=== PATIENT | female | born 1960 | race Hispanic/Latino ===

== ENCOUNTER 2023-03-19 15:40 | Emergency (ER) | payer OTHER ==
[~2023-03-19] VITALS: Ht 157.5 cm; Wt 113.4 kg
[2023-03-19 15:56] VITALS: BP 155/72; PULSE 85; RESP 18
[2023-03-19] MEDS ORDERED: CYCL-309 PO (16:18)
[2023-03-19] MEDS ORDERED: ACETAMINOPHEN 500 MG TABLET PO ONE (16:30)
[2023-03-19] MEDS ORDERED: CYCLOBENZAPRINE HCL 10 MG TABLET PO ONE (16:30)
== END 2023-03-19 16:40 | disposition home or self-care (01) ==
LOC: EDH 15:40
DX: S39.012A Strain of muscle, fascia and tendon of lower back, initial encounter (principal); I10 Essential (primary) hypertension; E11.9 Type 2 diabetes mellitus without complications; E78.00 Pure hypercholesterolemia, unspecified; Z88.6 Allergy status to analgesic agent; X58.XXXA Exposure to other specified factors, initial encounter; Y93.89 Activity, other specified; Y92.89 Other specified places as the place of occurrence of the external cause; Y99.8 Other external cause status

== ENCOUNTER 2023-04-24 14:27 | Emergency (ER) | payer OTHER ==
[~2023-04-24] VITALS: Ht 160 cm; Wt 108.9 kg
[~2023-04-24 14:27] MED LIST: CYCL-309 PO
[2023-04-24 14:30] VITALS: BP 160/76; PULSE 88; RESP 18
[2023-04-24] MEDS: HYDROCODONE/ACETAMINOPHEN 5/325 MG TAB PO ONE (19:21)
[2023-04-24] MEDS: DEXAMETHASONE SOD PHOSPHATE 4 MG/ML 1ML VIAL IVP ONE (19:21)
[2023-04-24] MEDS: DEXAMETHASONE SOD PHOSPHATE 4 MG/ML 1ML VIAL IM ONE (19:28)
[2023-04-24] MEDS ORDERED: MELO-106 PO (20:39)
== END 2023-04-24 20:56 | disposition home or self-care (01) ==
LOC: EDH 14:27
DX: M06.841 Other specified rheumatoid arthritis, right hand (principal); I10 Essential (primary) hypertension; E11.9 Type 2 diabetes mellitus without complications; E78.00 Pure hypercholesterolemia, unspecified; M19.90 Unspecified osteoarthritis, unspecified site; Z88.6 Allergy status to analgesic agent
CPT/HCPCS: 99283; 96372; J1100

== ENCOUNTER 2023-05-24 08:58 | Emergency (ER) | payer OTHER ==
[~2023-05-24] VITALS: Ht 152.4 cm; Wt 108.9 kg
[~2023-05-24 08:58] MED LIST changes: +MELO-106 PO
[2023-05-24] MEDS ORDERED: KETOROLAC 15MG/ML VIAL (15MG/ML) IV ONE (09:30)
[2023-05-24 09:37] LABS: BASOPHILS # (AUTO) 0.06 K/uL (0.00-0.20); BASOPHILS % (AUTO) 0.5 % (0.0-5.0); EOSINOPHILS # (AUTO) 0.71 K/uL (0.00-0.70); EOSINOPHILS % (AUTO) 6.4 % (0.0-8.0); HEMATOCRIT 38.6 % (36-48); IMMATURE GRANULOCYTE ABSOLUTE 0.05 K/uL (0-1); LYMPHOCYTES # (AUTO) 1.5 K/uL (1.0-4.8); LYMPHOCYTES % (AUTO) 13.6 % (21.0-51.0); MEAN CORPUSCULAR HEMOGLOBIN 25.8 pg (27.0-33.0); MEAN CORPUSCULAR HGB CONC 31.1 g/dL (32.0-36.0); MONOCYTES # (AUTO) 0.7 K/uL (0.1-1.0); MONOCYTES % (AUTO) 6.3 % (3.0-13.0); NEUTROPHILS % (AUTO) 72.7 % (40.0-77.0); PLATELET COUNT (AUTO) 132 K/uL (130-400); RED BLOOD CELL COUNT(AUTO) 4.65 MIL/uL (4.00-5.50)
[2023-05-24 09:47] LABS: APPEARANCE,URINE CLEAR (CLEAR); BILIRUBIN,URINE NEGATIVE (NEGATIVE); COLOR,URINE LIGHT-YELLOW (YELLOW); GLUCOSE, URINE (UA) NEGATIVE (NEGATIVE); KETONES,URINE NEGATIVE (NEGATIVE); LEUKOCYTE ESTERASE ,URINE 25 Leu/uL (NEGATIVE); NITRATE,URINE NEGATIVE (NEGATIVE); OCCULT BLOOD,URINE NEGATIVE (NEGATIVE); PROTEIN,URINE NEGATIVE (NEGATIVE); UROBILINOGEN,URINE 0.2 mg/dL (0.2-1.0)
[2023-05-24 09:51] LABS: ALBUMIN 3.3 g/dL (3.5-5.0); BILIRUBIN,TOTAL 0.5 mg/dL (0.2-1.0); CREATININE 1.2 mg/dL (0.5-1.0); POTASSIUM 4.6 mmol/L (3.5-5.1); TOTAL PROTEIN, SERUM 7.8 g/dL (6.0-8.3)
[2023-05-24 10:10] LABS: ADD UA MICROSCOPIC YES
[2023-05-24 10:17] LABS: BACTERIA,URINE RARE /HPF (None Seen); MUCUS,URINE RARE LPF (None Seen); OTHER CASTS, URINE 4 /LPF (None Seen); RBC,URINE 0-1 /HPF (0-1); SQUAMOUS EPITHELIAL CELL,UR RARE /HPF (0-2)
[2023-05-24] MEDS: MORPHINE 2 MG SYG IVP ONE (11:09)
[2023-05-24] MEDS: ONDANSETRON 4MG INJ IVP ONE (11:09)
[2023-05-24] MEDS: 0.9%NACL 1000ML 1,000 ML IV ONE (11:09)
[2023-05-24] MEDS ORDERED: DICY20TA2 PO (11:25)
[2023-05-24 12:15] VITALS: BP 130/62; PULSE 68; RESP 20; O2SAT 97
== END 2023-05-24 12:20 | disposition home or self-care (01) ==
LOC: EDH 08:58
DX: I12.9 Hypertensive chronic kidney disease with stage 1 through stage 4 chronic kidney disease, or unspecified chronic kidney disease (principal); E11.22 Type 2 diabetes mellitus with diabetic chronic kidney disease; N18.9 Chronic kidney disease, unspecified; R10.9 Unspecified abdominal pain; E87.1 Hypo-osmolality and hyponatremia; E78.00 Pure hypercholesterolemia, unspecified
CPT/HCPCS: 99285; 74176; 96374; 96361; 96375; 82150; 80053; 83690; 85025; 81001; 36415; J2270; J7030; J2405; J1885

== ENCOUNTER 2023-06-08 09:28 | Emergency (ER) | payer MEDICARE, OTHER ==
[~2023-06-08] VITALS: Ht 165.1 cm; Wt 104.3 kg
[~2023-06-08 09:28] MED LIST changes: +DICY20TA2 PO
[2023-06-08 10:01] LABS: BASOPHILS # (AUTO) 0.07 K/uL (0.00-0.20); BASOPHILS % (AUTO) 0.9 % (0.0-5.0); EOSINOPHILS # (AUTO) 0.65 K/uL (0.00-0.70); HEMATOCRIT 39.4 % (36-48); IMMATURE GRANULOCYTE ABSOLUTE 0.02 K/uL (0-1); LYMPHOCYTES # (AUTO) 1.6 K/uL (1.0-4.8); LYMPHOCYTES % (AUTO) 19.9 % (21.0-51.0); MEAN CORPUSCULAR HEMOGLOBIN 25.7 pg (27.0-33.0); MEAN CORPUSCULAR HGB CONC 31.2 g/dL (32.0-36.0); MEAN CORPUSCULAR VOLUME 82.3 fL (79-99); MONOCYTES # (AUTO) 0.5 K/uL (0.1-1.0); NEUTROPHILS # (AUTO) 5.3 K/uL (1.8-7.7); PLATELET COUNT (AUTO) 198 K/uL (130-400); RED BLOOD CELL COUNT(AUTO) 4.79 MIL/uL (4.00-5.50); RED CELL DISTRIBUTION WIDTH 16.3 % (11.0-15.5); WHITE BLOOD COUNT (AUTO) 8.2 K/uL (4.8-10.8)
[2023-06-08 10:02] LABS: APPEARANCE,URINE CLEAR (CLEAR); BILIRUBIN,URINE NEGATIVE (NEGATIVE); COLOR,URINE LIGHT-YELLOW (YELLOW); GLUCOSE, URINE (UA) NEGATIVE (NEGATIVE); KETONES,URINE NEGATIVE (NEGATIVE); LEUKOCYTE ESTERASE ,URINE NEGATIVE Leu/uL (NEGATIVE); NITRATE,URINE NEGATIVE (NEGATIVE); OCCULT BLOOD,URINE NEGATIVE (NEGATIVE); PH,URINE 6.5 (5.0-8.0); PROTEIN,URINE 10 mg/dL (NEGATIVE); UROBILINOGEN,URINE 0.2 mg/dL (0.2-1.0)
[2023-06-08 10:09] LABS: ADD UA MICROSCOPIC YES
[2023-06-08] MEDS: MORPHINE 4 MG SYG IVP ONE (10:13)
[2023-06-08] MEDS: ONDANSETRON 4MG INJ IV ONE (10:13)
[2023-06-08 10:15] LABS: MUCUS,URINE RARE LPF (None Seen); SQUAMOUS EPITHELIAL CELL,UR RARE /HPF (0-2); WBC,URINE 0-1 /HPF (0-1)
[2023-06-08 10:15] LABS: CREATININE 1.2 mg/dL (0.5-1.0)
[2023-06-08 10:20] LABS: ALBUMIN 3.5 g/dL (3.5-5.0); BILIRUBIN,TOTAL 0.4 mg/dL (0.2-1.0); TOTAL PROTEIN, SERUM 7.9 g/dL (6.0-8.3)
[2023-06-08] MEDS ORDERED: IOHEXOL 350 MG/ML 100ML INFUS..BTL IV ONE (12:07)
[2023-06-08] MEDS ORDERED: ONDA4TAB10 PO (12:44)
[2023-06-08] MEDS ORDERED: PRED50TA2 PO (12:44)
[2023-06-08] MEDS ORDERED: OXYC-38 PO (12:44)
[2023-06-08 13:01] VITALS: BP 122/53; PULSE 60; RESP 17; O2SAT 98
== END 2023-06-08 13:03 | disposition home or self-care (01) ==
LOC: EDH 09:28
DX: R10.9 Unspecified abdominal pain (principal); I10 Essential (primary) hypertension; E11.9 Type 2 diabetes mellitus without complications; E78.00 Pure hypercholesterolemia, unspecified; M19.90 Unspecified osteoarthritis, unspecified site; Z88.6 Allergy status to analgesic agent; Z98.890 Other specified postprocedural states
CPT/HCPCS: 99285; 74177; 96374; 96375; 80053; 83690; 85025; 81001; 36415; J2405; J2270; Q9967

== ENCOUNTER 2023-07-03 13:45 | Emergency (ER) | payer MEDICARE, OTHER ==
[~2023-07-03] VITALS: Ht 157.5 cm; Wt 105.7 kg
[~2023-07-03 13:45] MED LIST changes: +ONDA4TAB10 PO; +OXYC-38 PO; +PRED50TA2 PO
[2023-07-03] MEDS: 0.9%NACL 1000ML 1,000 ML IV ONE (14:31)
[2023-07-03] MEDS: MORPHINE 2 MG SYG IVP ONE (14:31)
[2023-07-03] MEDS: ONDANSETRON 4MG INJ IVP ONE (14:31)
[2023-07-03 14:33] LABS: BASOPHILS # (AUTO) 0.04 K/uL (0.00-0.20); BASOPHILS % (AUTO) 0.4 % (0.0-5.0); EOSINOPHILS # (AUTO) 0.88 K/uL (0.00-0.70); EOSINOPHILS % (AUTO) 9.3 % (0.0-8.0); HEMATOCRIT 35.3 % (36-48); IMMATURE GRANULOCYTE ABSOLUTE 0.05 K/uL (0-1); LYMPHOCYTES # (AUTO) 1.6 K/uL (1.0-4.8); MEAN CORPUSCULAR HGB CONC 32.3 g/dL (32.0-36.0); MEAN CORPUSCULAR VOLUME 80.4 fL (79-99); MONOCYTES # (AUTO) 0.7 K/uL (0.1-1.0); MONOCYTES % (AUTO) 7.4 % (3.0-13.0); NEUTROPHILS # (AUTO) 6.2 K/uL (1.8-7.7); NEUTROPHILS % (AUTO) 65.4 % (40.0-77.0); PLATELET COUNT (AUTO) 197 K/uL (130-400); RED BLOOD CELL COUNT(AUTO) 4.39 MIL/uL (4.00-5.50); RED CELL DISTRIBUTION WIDTH 16.8 % (11.0-15.5); WHITE BLOOD COUNT (AUTO) 9.5 K/uL (4.8-10.8)
[2023-07-03 14:36] LABS: APPEARANCE,URINE CLEAR (CLEAR); BILIRUBIN,URINE NEGATIVE (NEGATIVE); COLOR,URINE LIGHT-YELLOW (YELLOW); GLUCOSE, URINE (UA) NEGATIVE (NEGATIVE); KETONES,URINE NEGATIVE (NEGATIVE); LEUKOCYTE ESTERASE ,URINE NEGATIVE Leu/uL (NEGATIVE); NITRATE,URINE NEGATIVE (NEGATIVE); OCCULT BLOOD,URINE NEGATIVE (NEGATIVE); PH,URINE 5.5 (5.0-8.0); PROTEIN,URINE NEGATIVE (NEGATIVE); UROBILINOGEN,URINE 0.2 mg/dL (0.2-1.0)
[2023-07-03 14:38] LABS: ADD UA MICROSCOPIC NO
[2023-07-03 14:44] LABS: CREATININE 1.4 mg/dL (0.5-1.0); POTASSIUM 4.7 mmol/L (3.5-5.1)
[2023-07-03 14:48] LABS: ALBUMIN 3.7 g/dL (3.5-5.0); BILIRUBIN,TOTAL 0.4 mg/dL (0.2-1.0); TOTAL PROTEIN, SERUM 7.6 g/dL (6.0-8.3)
[2023-07-03] MEDS ORDERED: IOHEXOL-350 75 ML VIAL IV ONE (14:56)
[2023-07-03] MEDS ORDERED: LACT10SO5 PO (15:47)
[2023-07-03] MEDS: MORPHINE 2 MG SYG IV ONE (16:37)
[2023-07-03 17:03] VITALS: BP 104/66; PULSE 78; RESP 16; O2SAT 99
== END 2023-07-03 17:06 | disposition home or self-care (01) ==
LOC: EDH 13:45
DX: K59.00 Constipation, unspecified (principal); R14.1 Gas pain; K76.0 Fatty (change of) liver, not elsewhere classified; E86.0 Dehydration; I10 Essential (primary) hypertension; E11.9 Type 2 diabetes mellitus without complications; E78.00 Pure hypercholesterolemia, unspecified; M19.90 Unspecified osteoarthritis, unspecified site; Z79.899 Other long term (current) drug therapy; Z98.890 Other specified postprocedural states; Z88.8 Allergy status to other drugs, medicaments and biological substances
CPT/HCPCS: 99285; 74177; 96374; 96375; 84484; 80053; 83690; 85025; 81003; 36415; 93005; J2270 ×2; J7030; J2405; Q9967

== ENCOUNTER 2024-03-12 19:38 | Emergency (ER) | payer OTHER, MEDICARE ==
[~2024-03-12] VITALS: Ht 160 cm; Wt 95.3 kg
[~2024-03-12 19:38] MED LIST changes: +LACT-441 PO; +ONDA-243 PO; -ONDA4TAB10 PO
--- NOTE | 2024-03-12 19:55 | ERN ---
ED Note History of Present Illness Stated Complaint: PAIN TO BACK OF HEAD Chief Complaint: Headache Time Seen by MD: 19:42 Dictation: This is a 63-year-old female who presented to the emergency room complaining of pain in the lower part of the head and neck more on the right side. She stated that she has had this pain for a long time in other areas and multiple joints but this is the 1st time she felt in her neck area. She has a known history of arthritis. No history of any trauma, loss of consciousness, visual disturbance or any weakness. Neck feels stiff for her description Temperature 98.4 pulse 75 respirations 20 blood pressure 129/72 with a pulse oximetry of 98% on room air Her chronic medical problems include diabetes mellitus, hypertension, hypercholesterolemia, history of gout Allergies: Coded Allergies: ibuprofen (Unverified Allergy, Unknown, 03/19/23) Home Meds Active Scripts Cyclobenzaprine HCl (Cyclobenzaprine HCl) 5 Mg Tablet, 1 TAB PO TIDP PRN for muscle spasms for 5 Days, #15 TAB 0 Refills Prov:YAMINI PIMENTEL MD 03/12/24 Tramadol Hcl (Tramadol HCl) 50 Mg Tablet, 50 MG PO TID for pain, #16 TAB 0 Refills Prov:YAMINI PIMENTEL MD 03/12/24 Lactulose (Lactulose) 10 Gram/15 Ml Solution, 10 GM PO AD for CONSTIPATION, #200 ML 30 mL at bedtime with water as needed constipation Prov:RITESH RENE NP 07/03/23 Prednisone (Prednisone) 50 Mg Tablet, 50 MG PO DAILY for 5 Days, #5 TAB 0 Refills Prov:VELIA LAWRENCE MD 06/08/23 Ondansetron (Ondansetron Odt) 4 Mg Tab.rapdis, 4 MG PO Q6HPRN PRN for nausea, #16 TAB 0 Refills Prov:VELIA LAWRENCE MD 06/08/23 Oxycodone HCl/Acetaminophen (Percocet 5-325 mg Tablet) 5 Mg-325 Mg Tablet, 1 EACH PO Q6H for pain, #20 TAB 0 Refills Prov:VELIA LAWRENCE MD 06/08/23 Dicyclomine HCl (Bentyl) 20 Mg Tab, 20 MG PO Q6HPRN for ABD PAIN, #30 TAB Prov:RITESH RENE NP 05/24/23 Meloxicam (Meloxicam) 7.5 Mg Tablet, 7.5 MG PO DAILYBKFST, #30 TAB 0 Refills Prov:SANDRA LEVY ENVIRONMENTAL MONITORING SPECIALIST 04/24/23 Cyclobenzaprine HCl (Cyclobenzaprine HCl) 10 Mg Tablet, 10 MG PO TID for 5 Days, #30 TAB Prov:RITESH RENE ENVIRONMENTAL MONITORING SPECIALIST 03/19/23 Past Medical History Past Medical History: Arthritis, Diabetes-Type II, High Cholesterol, Hypertension, Other Additional Past Medical Hx: GOUT Surgical History: Surgical History Other: TUBAL LIGATION Family History: Negative Social History: Negative History: Not Applicable RN Note Reviewed/Agreed w/PFSH: Yes Review of System Dictation As described in the history of present illness Constitutional: Negative for fever,chills, and weight loss Eyes: Negative for injury, pain,redness, and discharge ENT: Negative for injury,pain or swelling Cardiovascular: Negative for chest pain, palpitations, and edema Respiratory: Negative for shortness of breath, cough, and wheezing, Abdomen/GI: Negative for abdominal pain, nausea, vomiting, diarrhea, and constipation Back: Negative for injury and pain : Negative for injury, bleeding and discharge MS/Extremity: Negative for injury and deformity Skin: Negative for rash, and discoloration Neuro: Negative for headache, weakness, numbness, tingling, and seizure Psych: Negative for suicide ideation, homicidal ideation, and hallucinations Initial Vital Sign VS Vital Signs Date Time Temp Pulse Resp B/P (MAP) Pulse Ox O2 Delivery O2 Flow Rate FiO2 03/12/24 19:40 98.4 75 20 129/72 96 Room Air 03/12/24 22:00 0 21 Physical Exam Dictation General: awake, alert, NAD Head/Face: Normocephalic, atraumatic Eyes: PERRL, EOMI, vision at baseline ENT: oral cavity clear, TMs clear, no signs of infection Neck: Trachea midline, supple, no nuchal rigidity muscles appeared tight but otherwise no deformity no malalignment Cardiovascular: RRR, normal S1/S2, No MRGs, no JVD Respiratory: CTAB, no respiratory distress, No rales or wheezes Abdomen: Soft, non-tender, non-distended, normal bowel sounds, no guarding or rebound. Skin: Warm, dry, normal turgor, no rash MS/Extremity: Pulses equal, no cyanosis, neurovascular intact, FROM Neuro: COAx4, GCS 15, strength 5/5, CN 2-12 intact, normal cerebellar exam, normal gait, Psych: Normal behavior, mood, and affect normal Extremities-trace edema without any palpable cords, Homans sign is negative Results (Laboratory/Radiology) Laboratory/Radiology Laboratory Tests Test 03/12/24 20:36 03/12/24 20:51 White Blood Count 9.2 K/uL (4.8-10.8) Red Blood Count 4.14 MIL/uL (4.00-5.50) Hemoglobin 10.7 g/dL (12.0-16.0) L Hematocrit 34.2 % (36-48) L Mean Corpuscular Volume 82.6 fL (79-99) Mean Corpuscular Hemoglobin 25.8 pg (27.0-33.0) L Mean Corpuscular Hemoglobin Concent 31.3 g/dL (32.0-36.0) L Red Cell Distribution Width 15.9 % (11.0-15.5) H Platelet Count 186 K/uL (130-400) Mean Platelet Volume 10.7 fL (7.5-10.5) H Immature Granulocyte % (Auto) 0.3 % (0-1) Neutrophils (%) (Auto) 71.7 % (40.0-77.0) Lymphocytes (%) (Auto) 16.7 % (21.0-51.0) L Monocytes (%) (Auto) 7.0 % (3.0-13.0) Eosinophils (%) (Auto) 3.9 % (0.0-8.0) Basophils (%) (Auto) 0.4 % (0.0-5.0) Neutrophils # (Auto) 6.6 K/uL (1.8-7.7) Lymphocytes # (Auto) 1.5 K/uL (1.0-4.8) Monocytes # (Auto) 0.6 K/uL (0.1-1.0) Eosinophils # (Auto) 0.36 K/uL (0.00-0.70) Basophils # (Auto) 0.04 K/uL (0.00-0.20) Absolute Immature Granulocyte (auto 0.03 K/uL (0-1) Nucleated Red Blood Cells 0.0 % (0.0-0.19) Sodium Level 138 mmol/L (136-145) Potassium Level 5.0 mmol/L (3.5-5.1) Chloride Level 104 mmol/L (101-111) Carbon Dioxide Level 29 mmol/L (21-32) Blood Urea Nitrogen 33 mg/dL (7-18) H Creatinine 1.5 mg/dL (0.5-1.0) H Glomerular Filtration Rate Calc 38 mL/min (>90) Random Glucose 92 mg/dL (70-105) Total Calcium 9.3 mg/dL (8.5-10.1) Urine Color LIGHT-YELLOW (YELLOW) Urine Appearance CLEAR (CLEAR) Urine pH 5.0 (5.0-8.0) Urine Specific [place] 1.013 (1.001-1.031) Urine Protein NEGATIVE mg/dL (NEGATIVE) Urine Glucose (UA) NEGATIVE mg/dL (NEGATIVE) Urine Ketones NEGATIVE mg/dL (NEGATIVE) Urine Occult Blood NEGATIVE (NEGATIVE) Urine Nitrate NEGATIVE (NEGATIVE) Urine Bilirubin NEGATIVE mg/dL (NEGATIVE) Urine Urobilinogen 0.2 mg/dL (0.2-1.0) Urine Leukocyte Esterase 25 Ata/uL (NEGATIVE) H Urine RBC 0-1 /HPF (0-1) Urine WBC 2-5 /HPF (0-1) H Urine Squamous Epithelial Cells RARE /HPF (0-2) Urine Non-Squamous Epithelial Cells <1 /HPF (0-2) Urine Bacteria None /HPF (None Seen) Urine Hyaline Casts 0-1 /LPF (0-1 /LPF) Labs Reviewed?: Yes ED Course ED Course Orders Procedure Category Date Status Time Cerv Spine 2-3vws RAD 03/12/24 Taken 19:51 Cbc With Differential LAB 03/12/24 Complete 19:56 Basic Metabolic Panel LAB 03/12/24 Complete 19:56 Urinalysis Profile LAB 03/12/24 Complete 19:56 Morphine 2mg Syg PHA 03/12/24 Complete (Morphine 2mg Syg) 20:00 Current Medications Medications (Trade) Dose Ordered Sig/Neena Route PRN Reason Start Time Stop Time Status Last Admin Dose Admin Morphine Sulfate (morPHINE 2MG SYG) 2 mg ONCE IM 03/12/24 20:00 03/12/24 22:13 DC 03/12/24 20:56 Vital Signs Date Time Temp Pulse Resp B/P (MAP) Pulse Ox O2 Delivery O2 Flow Rate FiO2 03/12/24 22:00 98.2 74 16 124/76 97 Room Air* 0 21 03/12/24 19:40 98.4 75 20 129/72 96 Room Air We will perform diagnostic labs, imaging and administer medications according to the patient's complaint. Once the results are available, will review and personally interpreted the labs to rule out any acute life-threatening emergency the trach require immediate intervention and treatment. I will then re-evaluate the patient after treatment and diagnostic exams have return to determine whether the patient requires any further testing, can safely be discharged home or need further admission to hospital for additional treatment and evaluation. I reviewed labs CBC showed a hemoglobin of 10.7 BNP 7 showed a BUN and creatinine of 33 and 1.5. Urinalysis showed positive leuko esterase but no WBCs. I had a long discussion with her and went over the labs x-rays and possibilities and answered all her questions she will be discharged to home on pain medicine and muscle relaxant for now. I explained to her that cervical spine x-ray preliminary showed only osteoarthritis and osteopenia and that the radiology report is still pending. Medical Decision Making MDM MDM: Differential diagnosis: Cervical spondylosis, cervical radiculopathy, cervical muscle strain, degenerative arthritis, fracture or dislocation Rationale: Tests considered and ordered secondary to shared decision making include: Previous outside records reviewed: Old ER visits. Risk of complication and/or morbidity or mortality of patient management: None Medications-Per medication reconciliation Need for hospitalization: Patient does not meet criteria for hospitalization. Need for emergency major/minor surgery: No There are no social concerns with this patient. Prescription drug management Prescriptions will include symptomatic care Patient's prior external medical records from other ER visits were reviewed by me as indicated. Prior testing and results from previous visits were reviewed. Prior tests were taken into account with medical decision making and resource utilization, independent historian/historians were used to obtain complete medical history. I independently interpreted the test that were performed, results were reviewed by me and considered findings on radiology if ordered. Medical management and examination interpretation discussions were had by me w ith other qualified healthcare professionals as indicated for the patient's care. Problem List Problem List: (1) Neck pain (2) Rheumatoid arthritis (3) Obesity (4) Cervical spine arthritis DX & DISP Disposition: Discharge Departure Impression: Primary Impression: Neck pain Additional Impressions: Rheumatoid arthritis, Obesity, Cervical spine arthritis Condition: Stable Scripts Cyclobenzaprine HCl (Cyclobenzaprine HCl) 5 Mg Tablet 1 TAB PO TIDP PRN for muscle spasms for 5 Days, #15 TAB 0 Refills Prov: YAMINI PIMENTEL MD 03/12/24 Tramadol Hcl (Tramadol HCl) 50 Mg Tablet 50 MG PO TID for pain, #16 TAB 0 Refills Prov: YAMINI PIMENTEL MD 03/12/24 Additional Instructions: Patient and the caregiver have been informed of all the diagnostic tests and the imaging conducted during the today's visit to the emergency room and has verbalized understanding of the results I have personally reviewed and interpreted all diagnostic exams performed here in the ER today as well as the vital signs documented by the nursing staff. The patient is now being discharged to home and should follow up with the primary care physician or the specialist as directed by the ER staff. Follow-up with primary care provider in 1 to 2 days. Take medications as directed here in the emergency room. Okay to continue home medications unless otherwise discussed during your visit in the emergency room today. Return to your nearest emergency room if symptoms worsen or if there is no improvement. Call 911 if you need immediate assistance. Take Tylenol or Motrin [id number] as needed and if no contraindications are present. Increase oral hydration. A wound culture or urine culture was ordered here in the emergency room department please follow-up with primary care provider and advise them to get repeat ports from our facility. If you had any Jackson wrap/splints that were applied here, please do not remove them until you see your primary care or specialty. Referrals: BRYSON LIU MD (PCP) YAMINI PIMENTEL MD Mar 12, 2024 19:55
[2024-03-12 20:43] LABS: BASOPHILS # (AUTO) 0.04 K/uL (0.00-0.20); BASOPHILS % (AUTO) 0.4 % (0.0-5.0); EOSINOPHILS # (AUTO) 0.36 K/uL (0.00-0.70); EOSINOPHILS % (AUTO) 3.9 % (0.0-8.0); HEMATOCRIT 34.2 % (36-48); IMMATURE GRANULOCYTE ABSOLUTE 0.03 K/uL (0-1); LYMPHOCYTES # (AUTO) 1.5 K/uL (1.0-4.8); LYMPHOCYTES % (AUTO) 16.7 % (21.0-51.0); MEAN CORPUSCULAR HEMOGLOBIN 25.8 pg (27.0-33.0); MEAN CORPUSCULAR HGB CONC 31.3 g/dL (32.0-36.0); MEAN CORPUSCULAR VOLUME 82.6 fL (79-99); MONOCYTES # (AUTO) 0.6 K/uL (0.1-1.0); NEUTROPHILS # (AUTO) 6.6 K/uL (1.8-7.7); NEUTROPHILS % (AUTO) 71.7 % (40.0-77.0); PLATELET COUNT (AUTO) 186 K/uL (130-400); RED BLOOD CELL COUNT(AUTO) 4.14 MIL/uL (4.00-5.50); RED CELL DISTRIBUTION WIDTH 15.9 % (11.0-15.5); WHITE BLOOD COUNT (AUTO) 9.2 K/uL (4.8-10.8)
[2024-03-12 20:51] LABS: CREATININE 1.5 mg/dL (0.5-1.0)
[2024-03-12] MEDS: morPHINE 2 MG SYG IM SCH (20:56)
[2024-03-12] MEDS ORDERED: TRAM50TA4 PO (21:07)
[2024-03-12 21:09] LABS: APPEARANCE,URINE CLEAR (CLEAR); BILIRUBIN,URINE NEGATIVE (NEGATIVE); COLOR,URINE LIGHT-YELLOW (YELLOW); GLUCOSE, URINE (UA) NEGATIVE (NEGATIVE); KETONES,URINE NEGATIVE (NEGATIVE); LEUKOCYTE ESTERASE ,URINE 25 Leu/uL (NEGATIVE); NITRATE,URINE NEGATIVE (NEGATIVE); OCCULT BLOOD,URINE NEGATIVE (NEGATIVE); PROTEIN,URINE NEGATIVE (NEGATIVE); UROBILINOGEN,URINE 0.2 mg/dL (0.2-1.0)
[2024-03-12 21:10] LABS: ADD UA MICROSCOPIC YES
[2024-03-12 21:12] LABS: HYALINE CASTS, URINE 0-1 /LPF (0-1 /LPF); MUCUS,URINE RARE LPF (None Seen); NON-SQUAMOUS EPITHELIAL CELL <1 /HPF (0-2); RBC,URINE 0-1 /HPF (0-1); SQUAMOUS EPITHELIAL CELL,UR RARE /HPF (0-2)
[2024-03-12] MEDS ORDERED: CYCL5TAB3 PO (21:52)
[2024-03-12 22:00] VITALS: BP 124/76; PULSE 74; RESP 16; TEMP 98.2; O2SAT 97
--- NOTE | 2024-03-13 08:57 | HMCIMG ---
Exam: CERVICAL SPINE 2 VIEWS REASON: RA, neck and back of the head pain TECHNIQUE: 4 views were obtained. FINDINGS: There are normal appearing vertebral bodies. Interspace heights are well preserved. There are no visible fractures. There are mild degenerative changes in the facets. Soft tissues appear unremarkable. IMPRESSION: 1. Mild degenerative changes, no acute finding.
== END 2024-03-12 22:13 | disposition home or self-care (01) ==
LOC: EDH 19:38
DX: M54.2 Cervicalgia (principal); M06.9 Rheumatoid arthritis, unspecified; E66.9 Obesity, unspecified; M47.9 Spondylosis, unspecified; E11.9 Type 2 diabetes mellitus without complications; E78.00 Pure hypercholesterolemia, unspecified; I10 Essential (primary) hypertension; Z79.52 Long term (current) use of systemic steroids; Z88.6 Allergy status to analgesic agent; Z98.51 Tubal ligation status
CPT/HCPCS: 99284; 80048; 85025; 81001; 36415; 72040; 96372; J2270